=== PATIENT | female | born 1975 | race Two or more races ===

== ENCOUNTER 2018-09-01 17:47 | Emergency (ER) | payer MEDICARE, MEDICAID ==
[~2018-09-01] VITALS: Ht 160 cm; Wt 65.8 kg
[2018-09-01 18:11] VITALS: BP 108/64
== END 2018-09-01 18:47 | disposition left against medical advice (07) ==
LOC: ER 17:51
DX: M54.2 Cervicalgia (principal); Z53.21 Procedure and treatment not carried out due to patient leaving prior to being seen by health care provider